=== PATIENT | male | born 1940 | race Caucasian/White ===

== ENCOUNTER → 2017-06-16 | Outpatient (CLI) | payer OTHER ==
[2017-06-16 11:19] LABS: BLOOD UREA NITROGEN 19 mg/dL (7-18); CALCIUM 9.8 mg/dL (8.5-10.1); CARBON DIOXIDE 30.1 mmol/L (21-32); CHLORIDE 101 mmol/L (98-107); COR NA(FOR HYPERGLY) 142 mmol/L (136-145); SODIUM 139 mmol/L (136-145); eGFR BLACK RACES > 60 (>60); eGFR NON BLACK RACES 53 (>60)
[2017-06-16 11:23] LABS: HEMOGLOBIN A1C 7.1 %
[2017-06-16 12:19] LABS: ALANINE AMINOTRANSFERASE 25 Units/L (12-78); ALBUMIN 3.8 g/dL (3.4-5.0); ALKALINE PHOSPHATASE 61 Units/L (46-116); ASPARTATE AMINO TRANSFERASE 16 Units/L (15-37); CHOL/HDL RATIO 4.8 (0.0-5.0); CHOLESTEROL 145 mg/dL (0-200); HDL CHOLESTEROL 30 mg/dL (40-60); TOTAL PROTEIN 7.7 g/dL (6.4-8.2); TRIGLYCERIDES 223 mg/dL (0-150)
[2017-06-16 14:36] LABS: BASOPHILS # (AUTO) 0.2 X10^3/uL (0.0-0.1); BASOPHILS % (AUTO) 2.6 % (0.2-1.0); EOSINOPHILS # (AUTO) 0.2 x10^3/uL (0.0-0.2); EOSINOPHILS % (AUTO) 3.3 % (0.9-2.9); HEMATOCRIT 37.4 % (42.0-54.0); HEMOGLOBIN 12.8 g/dL (13.5-18.0); LYMPHOCYTES # (AUTO) 1.6 X10^3/uL (1.3-2.9); LYMPHOCYTES % (AUTO) 23.5 % (21.0-51.0); MEAN CORPUSCULAR HEMOGLOBIN 28.3 pg (27.0-34.0); MEAN CORPUSCULAR HGB CONC 34.2 g/dL (33.0-35.0); MEAN CORPUSCULAR VOLUME 82.6 fL (80.0-100.0); MEAN PLATELET VOLUME 8.9 fL (7.4-11.0); MONOCYTES # (AUTO) 0.8 x10^3/uL (0.3-0.8); MONOCYTES % (AUTO) 11.7 % (0.0-13.0); NEUTROPHILS # (AUTO) 3.9 x10^3/uL (2.2-4.8); NEUTROPHILS % (AUTO) 58.9 % (42.0-75.0); PLATELET COUNT 191 X10^3/uL (150.0-450.0); RED BLOOD COUNT 4.53 X10^6/uL (4.7-6.0); RED CELL DISTRIBUTION WIDTH 14.1 % (11.6-16.5); WHITE BLOOD COUNT 6.6 X10^3/uL (3.6-10.0)
--- NOTE | 2017-06-16 22:25 | RAD ---
HISTORY: Unspecified abdominal pain. Study: Acute abdominal series. Comparison: None. Findings: The trachea is midline. The cardiac silhouette is at the upper limits of normal in size. The lungs ar e clear without focal consolidation, pleural effusion or pneumothorax. There is evidence of prior med angelito sternotomy. Postsurgical changes of the cervical spine are noted as well. Flat plate and upright evaluation of the abdomen demonstrates a nonobstructive bowel gas pattern. The re is no intraperitoneal free air on upright imaging. There is exclusion of the lateral aspects of th e abdomen bilaterally. There are postsurgical changes of the lumbar spine. IMPRESSION: 1. No acute cardiopulmonary disease. 2. No evidence for acute abdominal pathology. There is exclusion of the lateral aspects of the abdom en bilaterally. Reported By:
== END ==
LOC: LAB 10:22
PROVIDERS: ATTEND Obstetrics & Gynecology Obstetrics
DX: R10.84 Generalized abdominal pain (principal); E11.9 Type 2 diabetes mellitus without complications
CPT/HCPCS: 36415; 74022; 80053; 80061; 83036; 83525; 85025